=== PATIENT | male | born 1945 | race Caucasian/White ===

== ENCOUNTER 2020-12-31 06:33 | Day surgery (SDC) | payer MEDICARE ==
[2020-12-31] MEDS ORDERED: Sodium Chloride 0.9% 1,000 ML IV SCH (07:00)
[2020-12-31] MEDS ORDERED: fentaNYL 100 MCG/2 ML SDV ONE (07:16)
[2020-12-31] MEDS ORDERED: Midazolam 1 MG/ML 2 ML SDV ONE (07:16)
[2020-12-31] MEDS ORDERED: Propofol 200 MG/20 ML SDV ONE (07:16)
[2020-12-31 09:31] VITALS: BP 96/62; PULSE 66
--- NOTE | 2020-12-31 09:53 | OR ---
DATE OF PROCEDURE: 12/31/2020 SURGEON: Derek Jacobson MD PROCEDURE: Colonoscopy. FINDINGS: 1. Sigmoid colon polyp #1, approximately 5 mm, completely removed using cold biopsy forceps. 2. Sigmoid colon polyp #2, approximately 1 cm, completely removed using hot snare wire device. COMPLICATIONS: None. CAN FILLER: None. ANESTHESIA: MAC. PREOPERATIVE DIAGNOSIS: Screening colonoscopy. POSTOPERATIVE DIAGNOSIS: Screening colonoscopy. RISKS: Risks, benefits, alternatives, and limitations including, but not limited to infection, bleeding, and perforation were explained to the patient along with false positives and false negatives. PROCEDURE IN DETAIL: The patient was placed in left lateral decubitus position. Digital rectal exam was performed without abnormality. The scope was introduced and advanced atraumatically to ileocecal valve. A photo was taken of this. The scope was brought back to the ascending, transverse, descending colon, and retroflexed. The aforementioned polyps were completely removed using the aforementioned description. No abnormal bleeding was noted after removal. No abnormalities on retroflexion. No diverticulosis. No old or new blood. No colitis. The patient tolerated the procedure well. Greater than 8 minutes was spent removing the scope. Prep was acceptable. Approximately 95% of luminal surface could be seen. Derek Jacobson MD /[id number]
== END 2020-12-31 09:52 | disposition home or self-care (01) ==
LOC: JP.SDS 06:33
PROVIDERS: ATTEND Surgery
DX: Z12.11 Encounter for screening for malignant neoplasm of colon (principal); D12.5 Benign neoplasm of sigmoid colon; I10 Essential (primary) hypertension; K21.9 Gastro-esophageal reflux disease without esophagitis; I48.91 Unspecified atrial fibrillation; Z79.899 Other long term (current) drug therapy; Z91.018 Allergy to other foods; Z88.8 Allergy status to other drugs, medicaments and biological substances; Z95.828 Presence of other vascular implants and grafts
CPT/HCPCS: 88305; J2250; J2704; J3010; J7030